=== PATIENT | male | born 1940 | race Caucasian/White ===

== ENCOUNTER 2017-11-12 13:50 | Emergency (ER) | payer OTHER ==
[~2017-11-12] VITALS: Ht 182.9 cm; Wt 108.9 kg
[~2017-11-12 13:50] MED LIST: ACE650RS PO; AMLO5TAB2 PO; B-CO-5 PO; BUME2TAB3 PO; CALC1250 PO; CLO01T PO; GAB400C PO; INSU70IN9 SC; OMEP20CA74 PO; PRAV20TA3 PO; SODB650T PO; SPIR50TA23 PO
[2017-11-12] MEDS ORDERED: SODIUM CHLORIDE 0.9% 1,000 ML IV ONE (16:00)
[2017-11-12 17:13] LABS: Alanine Aminotransferase 73 U/L (16-61); Albumin 2.2 g/dL (3.4-5.0); Anion Gap 9 (5-15); Aspartate Aminotransferase 65 U/L (15-37); BUN/Creatinine Ratio 5.9; Blood Urea Nitrogen 23 mg/dL (7-18); Calcium 8.3 mg/dL (8.5-10.1); Carbon Dioxide 25 mmol/L (21-32); Chloride 103 mmol/L (98-107); GFR African American 20 mL/min; GFR Non-African American 16 mL/min; Glucose 129 mg/dL (74-106); Potassium 4.7 mmol/L (3.5-5.1); Sodium 137 mmol/L (136-145)
[2017-11-12 17:18] LABS: Alkaline Phosphatase 65 U/L (45-117); Bilirubin, Total 2.8 mg/dL (0.2-1.0); Total Protein 6.5 g/dL (6.4-8.2)
[2017-11-12 17:21] LABS: Basophils # (auto) 0 uL; Eosinophils # (auto) 0 uL; Eosinophils % (auto) 0.3 % (0.0-7.0); Lymphocytes # (auto) 0.6 uL; Monocytes # (auto) 0.4 uL; Monocytes % (auto) 12.9 % (0.0-12.0); Neutrophils # (auto) 2.1 uL; Nucleated Red Blood Cells % 0.4 %
[2017-11-12 17:22] LABS: Basophils % (auto) 0.2 % (0.0-2.0); Hematocrit 23.6 % (41.0-53.0); Hemoglobin 8.2 g/dL (13.5-17.5); Lymphocytes % (auto) 18.5 % (10.0-50.0); Mean Corpuscular Hemoglobin 35.6 pg (28.0-32.0); Mean Corpuscular Hgb Conc. 34.6 g/dL (32.0-36.0); Neutrophils % (auto) 68.1 % (37.0-80.0); Red Blood Cells 2.29 10^6/uL (4.5-5.90)
[2017-11-12 17:29] LABS: Red Cell Distribution Width 25.3 % (11.8-14.3)
[2017-11-12 17:30] LABS: Platelet Count (auto) 120 10^3/uL (140-450)
[2017-11-12 18:04] VITALS: BP 105/53
== END 2017-11-12 18:04 | disposition home or self-care (01) ==
LOC: EDBD 13:50 → ER 13:50
DX: F03.90 Unspecified dementia, unspecified severity, without behavioral disturbance, psychotic disturbance, mood disturbance, and anxiety (principal); E11.22 Type 2 diabetes mellitus with diabetic chronic kidney disease; I12.0 Hypertensive chronic kidney disease with stage 5 chronic kidney disease or end stage renal disease; N18.6 End stage renal disease; R41.82 Altered mental status, unspecified; E43 Unspecified severe protein-calorie malnutrition; Z68.32 Body mass index [BMI] 32.0-32.9, adult; Z88.1 Allergy status to other antibiotic agents; Z88.6 Allergy status to analgesic agent; Z88.8 Allergy status to other drugs, medicaments and biological substances; Z79.899 Other long term (current) drug therapy; Z99.2 Dependence on renal dialysis
CPT/HCPCS: 36415; 70450; 71045; 80053; 84484; 85025; 93005